=== PATIENT | female | born 1990 | race Caucasian/White ===

== ENCOUNTER 2017-02-21 10:09 | Emergency (ER) | payer OTHER ==
[~2017-02-21] VITALS: Ht 172.7 cm; Wt 70.0 kg
[~2017-02-21 10:09] MED LIST: ALLE12TA PO; AMOX500T PO; AMOX875T20 PO; FIORTAB4 PO; KETO10 PO; PRED20 PO; SULF-154 PO
[2017-02-21 10:10] VITALS: BP 109/65; PULSE 75; RESP 16; TEMP 98.5; O2SAT 98
[2017-02-21] MEDS ORDERED: KETOROLAC TROMETHAMINE 30 MG/ML (IVP) VIAL IV PUSH ONE (11:15)
[2017-02-21] MEDS ORDERED: diphenhydrAMINE HCL 50 MG/ML VIAL IVP ONE (11:15)
[2017-02-21] MEDS ORDERED: KETOROLAC TROMETHAMINE 30 MG/ML (IVP) VIAL IVP ONE (11:15)
[2017-02-21] MEDS ORDERED: PROCHLORPERAZINE INJ 10 MG/2 ML VIAL IVP ONE (11:15)
[2017-02-21] MEDS ORDERED: SODIUM CHLOR 0.9% 1000 ML INJ 1,000 ML IV ONE (11:15)
--- NOTE | 2017-02-21 11:21 | PD ---
HPI Chief Complaint: Headache Time Seen by Provider: 11:10 Travel History International Travel<30 days: No Contact w/Intl Traveler<30days: No Traveled to known affect area: No History of Present Illness HPI This is a 26-year-old female who has a history of migraines who presents to the emergency Department with onset of a headache at 4 AM, constant, moderate severity starting in her temples and radiating to the back of the neck associated with photophobia and flashes in her vision. She's vomited several times and was unable to keep anything down so she came to the emergency department. She says she has migraine headaches several times per year. Usually she Can control them with ibuprofen at home. She says this feels similar to her other headaches but the vomiting and inability to keep medications down is worse than normal. She denies any difficulty walking or talking. PFSH Past Medical History Diminished Hearing: No ?: Not LMP: 02/06/17 : 2 Para: 2 Past Surgical History Section: Yes (X 2) Social History Alcohol Use: Yes (OCCASIONAL) Tobacco Use: Yes (04/26 PPD) Substance Use: Yes (MARIJUANA) Allergies-Medications (Allergen,Severity, Reaction): Coded Allergies: cefaclor (Unverified Allergy, Severe, HIVES, 02/21/17) dog dander (Unverified Allergy, Severe, 02/21/17) erythromycin base (Unverified Allergy, Severe, HIVES, 02/21/17) Reported Meds & Prescriptions Reported Meds & Active Scripts Active No Active Prescriptions or Reported Medications Review of Systems Except as stated in HPI: all other systems reviewed are Neg Physical Exam Narrative GENERAL:Well appearing, no acute distress SKIN: Focused skin assessment warm and dry. HEAD: Atraumatic. Normocephalic. EYES: Pupils equal and round. No injection or drainage.(+) photophobia ENT: Moist mucous membranes NECK: Trachea midline. (-) meningismus CARDIOVASCULAR: Regular rate and rhythm. No murmur appreciated. RESPIRATORY: Clear to auscultation. Breath sounds equal bilaterally. GASTROINTESTINAL: Abdomen soft, non-tender, nondistended. MUSCULOSKELETAL: No obvious deformities. NEUROLOGICAL: Awake and alert. No obvious cranial nerve deficits. No dysarthria or aphasia. No upper or lower extremity drift. No upper extremity ataxia. Visual marcum intact. PSYCHIATRIC: Appropriate mood and affect; insight and judgment normal. Data Data Last Documented VS Vital Signs Date Time Temp Pulse Resp B/P (MAP) Pulse Ox O2 Delivery O2 Flow Rate FiO2 02/21/17 10:10 98.5 75 16 109/65 (80) 98 Room Air Orders Orders Ketorolac Inj (Toradol Inj) (02/21/17 11:15) Ketorolac Inj (Toradol Inj) (02/21/17 11:15) Prochlorperazine Inj (Compazine Inj) (02/21/17 11:15) Diphenhydramine Inj (Benadryl Inj) (02/21/17 11:15) Sodium Chlor 0.9% 1000 Ml Inj (Ns 1000 M (02/21/17 11:15) MDM Medical Decision Making Medical Screen Exam Complete: Yes Emergency Medical Condition: Yes Interpretation(s) Afebrile, no tachycardia, normotensive Differential Diagnosis Migraine headache, tension headache, subarachnoid hemorrhage, meningitis Narrative Course This is a 26-year-old female who has a history of migraine headaches who presents to the emergency department with a headache similar to her prior. She has a normal neurologic exam. I doubt subarachnoid hemorrhage as she has long history of migraines and this is similar. She was given IV fluids and pain control and she feels much better. Patient will be discharged home Diagnosis Primary Impression: Migraine Qualified Codes: G43.109 - Migraine with aura, not intractable, without status migrainosus Patient Instructions: General Instructions Additional Instructions: If you develop severe worsening headache, persistent vomiting, numbness, weakness, difficulty walking or difficulty talking return to the emergency department immediately. Sometimes in the emergency department we did not identify the cause of headaches. If you continued to have headaches it is very important that you followup with your primary care physician as you may need further testing with an MRI. Med/Other Pt SpecificInfo: Prescription(s) given Scripts Naproxen (Naproxen) 500 Mg Tab 500 MG PO BID Y for PAIN SCALE 4 TO 10, #20 TAB 0 Refills Prov: Cris Alaniz MD 02/21/17 Disposition: 01 DISCHARGE HOME Condition: Stable Cris Alaniz MD Feb 21, 2017 11:21
[2017-02-21] MEDS ORDERED: NAPR500T2 PO (12:20)
[2017-02-21 12:33] VITALS: BP 110/65
== END 2017-02-21 12:44 | disposition home or self-care (01) ==
LOC: NEPD 10:09
DX: G43.109 Migraine with aura, not intractable, without status migrainosus (principal); Z72.0 Tobacco use
CPT/HCPCS: 96374; 96375; 99284; J0780; J1200; J1885; J7030

== ENCOUNTER 2017-07-09 18:53 | Emergency (ER) | payer OTHER ==
[~2017-07-09 18:53] MED LIST changes: -ALLE12TA PO; -AMOX500T PO; -AMOX875T20 PO; -FIORTAB4 PO; -KETO10 PO; +NAPR500T2 PO; -PRED20 PO; -SULF-154 PO
[2017-07-09 19:07] VITALS: BP 114/65; PULSE 57; RESP 14; TEMP 98.7; O2SAT 98
[2017-07-09] MEDS ORDERED: NAPR500T2 PO (20:06)
--- NOTE | 2017-07-09 20:08 | RADRPT ---
EXAM DATE/TIME: 07/09/2017 19:17 [facility] COMPARISON: No previous studies available for comparison. INDICATIONS : Left lateral foot pain, injured jumping MEDICAL HISTORY : None. SURGICAL HISTORY : None. ENCOUNTER: Initial ACUITY: 2 days PAIN SCORE: 10/10 LOCATION: Left Foot FINDINGS: Three view examination of the left foot demonstrates no soft tissue swelling, dislocation, or fractur e. The tarsal bones appear intact. The interphalangeal and metatarsophalangeal joints are intact. The calcaneus is intact. Bony mineralization is normal. CONCLUSION: 1. No acute bony abnormality. Mendoza Payne MD on July 09, 2017 at 20:05 Board Certified Radiologist. This report was verified electronically.
--- NOTE | 2017-07-09 20:12 | PD ---
HPI Chief Complaint: Injury Time Seen by Provider: 19:48 Travel History International Travel<30 days: No Contact w/Intl Traveler<30days: No Traveled to known affect area: No History of Present Illness HPI 27-year-old female presents to the ED for evaluation 8/10 left foot pain. Onset yesterday after she "landed wrong" while jumping on trampoline at [employer]. She has been ambulatory since the accident. She denies numbness, tingling, weakness, limitations to range of motion or giving way of the extremity. She's never injured it before. She treated with ibuprofen which irritated her stomach, with no improvement in symptoms. PFSH Past Medical History Diminished Hearing: No ?: Not LMP: 06/25/2017 : 2 Para: 2 Past Surgical History Section: Yes (X 2) Social History Alcohol Use: Yes (OCCASIONAL) Tobacco Use: Yes (04/26 PPD) Substance Use: Yes (MARIJUANA) Allergies-Medications (Allergen,Severity, Reaction): Coded Allergies: cefaclor (Unverified Allergy, Severe, HIVES, 02/21/17) dog dander (Unverified Allergy, Severe, 02/21/17) erythromycin base (Unverified Allergy, Severe, HIVES, 02/21/17) Reported Meds & Prescriptions Reported Meds & Active Scripts Active Naproxen 500 Mg Tab 500 Mg PO BID Naproxen 500 Mg Tab 500 Mg PO BID PRN Review of Systems Except as stated in HPI: all other systems reviewed are Neg Physical Exam Narrative GENERAL: Well-nourished, well-developed white female in no acute distress. SKIN: Focused skin assessment warm/dry. HEAD: Normocephalic. EYES: No scleral icterus. No injection or drainage. NECK: Supple, trachea midline. No JVD or lymphadenopathy. CARDIOVASCULAR: Regular rate and rhythm without murmurs, gallops, or rubs. RESPIRATORY: Breath sounds equal bilaterally. No accessory muscle use. GASTROINTESTINAL: Abdomen soft, non-tender, nondistended. MUSCULOSKELETAL: No cyanosis, or edema. FOCUSED LEFT LOWER EXTREMITIES EXAM: 2+ DP pulse. Patient is able to wiggle her toes and flex and extend the ankle. There is ecchymosis and mild edema distal to the lateral malleolus. Squeeze test negative. No tenderness to palpation of the malleoli, base of the fifth or navicular. Neurovascular intact distally. BACK: Nontender without obvious deformity. No CVA tenderness. Data Data Last Documented VS Vital Signs Date Time Temp Pulse Resp B/P (MAP) Pulse Ox O2 Delivery O2 Flow Rate FiO2 07/09/17 19:07 98.7 57 14 114/65 (81) 98 Orders Orders Foot, Complete (Och0lev) (07/09/17 ) Shoe Post Op (07/09/17 ) Crutches (07/09/17 20:05) Ronal Bandage (07/09/17 20:05) Naproxen (Naprosyn) (07/09/17 20:15) MDM Medical Decision Making Medical Screen Exam Complete: Yes Emergency Medical Condition: Yes Differential Diagnosis Ankle sprain versus foot sprain versus fracture versus dislocation versus other Narrative Course 27-year-old female presents to the ED for evaluation 11/30 left foot pain. Onset yesterday after she "landed wrong" while jumping on trampoline at [employer]. She has been ambulatory since the accident. She denies numbness, tingling, weakness, limitations to range of motion or giving way of the extremity. Vitals reviewed. Physical exam reveals ecchymosis and edema distal to the lateral malleolus but is otherwise unremarkable. X-rays reveal no acute bony injury. This is sprain. Patient is evaluated with an Ronal wrap, postop shoe and crutches. She is prescribed Naprosyn 500 mg twice a day. She is instructed to return to normal, gentle weightbearing as tolerated, follow with the geospatial systems integrator. She is stable and discharged home. Diagnosis Primary Impression: Unspecified sprain of left foot, initial encounter Referrals: [facility] Additional Instructions: Rest, ice, compress, elevate the extremity. Apply ice no longer than 10-15 minutes per hour a few times a day. 500 mg naproxen twice a day to reduce pain and swelling. Return to normal, gentle activity as tolerated. Return to weightbearing as tolerated. No running, jumping activities for the next few weeks. Follow up with geospatial systems integrator. Return to the ED for any urgent or emergent medical condition. Med/Other Pt SpecificInfo: Prescription(s) given Scripts Naproxen (Naproxen) 500 Mg Tab 500 MG PO BID, #10 TAB 0 Refills Prov: Virgen,Shravanti R. MD 07/09/17 Disposition: 01 DISCHARGE HOME Condition: Stable Magda Hewitt Jul 09, 2017 20:12
[2017-07-09] MEDS ORDERED: NAPROXEN 500 MG TAB PO ONE (20:15)
== END 2017-07-09 20:30 | disposition home or self-care (01) ==
LOC: NED 18:53 → NEPK 20:30
DX: S93.602A Unspecified sprain of left foot, initial encounter (principal); F12.90 Cannabis use, unspecified, uncomplicated; F17.200 Nicotine dependence, unspecified, uncomplicated; X50.1XXA Overexertion from prolonged static or awkward postures, initial encounter; Y93.44 Activity, trampolining; Y92.838 Other recreation area as the place of occurrence of the external cause; Z88.1 Allergy status to other antibiotic agents
CPT/HCPCS: 73630; 99283; E0113; L3260

== ENCOUNTER 2017-08-10 20:48 | Emergency (ER) | payer OTHER ==
[~2017-08-10] VITALS: Ht 172.7 cm; Wt 78.0 kg
[2017-08-10 21:13] VITALS: BP 133/61; PULSE 93; RESP 20; TEMP 98.6; O2SAT 96
[2017-08-10] MEDS ORDERED: DEXAMETHASONE SOD PHOS 4 MG/ML VIAL IM ONE (21:45)
[2017-08-10] MEDS ORDERED: SODIUM CHLORIDE 0.9% FLUSH 10 ML FLUSH IVF PRN (21:45)
[2017-08-10] MEDS: RESP: ALBUTEROL 2.5 MG/IPRATROPIUM 0.5 MG NEB (SCH) INH (22:11)
--- NOTE | 2017-08-10 22:57 | PD ---
HPI Chief Complaint: Cold / Flu Symptoms Time Seen by Provider: 21:29 Travel History International Travel<30 days: No Contact w/Intl Traveler<30days: No Traveled to known affect area: No History of Present Illness HPI 27-year-old female complains of sore throat and cough. She also reports runny nose and sneezing. She reports working today and inhaling some noxious smoke causing dyspnea as well. She reports having to leave work because of it. Patient reports subjective fever. No similar prior events. No chest pain. No vomiting. PFSH Past Medical History Diminished Hearing: No : 2 Para: 2 Past Surgical History Section: Yes (X 2) Social History Alcohol Use: Yes (OCCASIONAL) Tobacco Use: Yes (04/26 PPD) Substance Use: Yes (MARIJUANA) Allergies-Medications (Allergen,Severity, Reaction): Coded Allergies: cefaclor (Unverified Allergy, Severe, HIVES, 08/10/17) dog dander (Unverified Allergy, Severe, 08/10/17) erythromycin base (Unverified Allergy, Severe, HIVES, 08/10/17) Reported Meds & Prescriptions Reported Meds & Active Scripts Active Naproxen 500 Mg Tab 500 Mg PO BID Naproxen 500 Mg Tab 500 Mg PO BID PRN Review of Systems Except as stated in HPI: all other systems reviewed are Neg General / Constitutional: Positive: Fever (Subjective report) Physical Exam Narrative GENERAL: 27-year-old female pleasant well-nourished well-developed mild distress Vital Signs Date Time Temp Pulse Resp B/P (MAP) Pulse Ox O2 Delivery O2 Flow Rate FiO2 08/10/17 21:13 98.6 93 20 133/61 (85) 96 SKIN: Warm and dry. HEAD: Atraumatic. Normocephalic. EYES: Pupils equal and round. No scleral icterus. No injection or drainage. ENT: No nasal bleeding or discharge. Mucous membranes pink and moist. Posterior oropharynx widely patent with minimal erythema. No asymmetry of the tonsils. NECK: Trachea midline. No JVD. CARDIOVASCULAR: Regular rate and rhythm. RESPIRATORY: Minimal wheezing is present bilaterally. GASTROINTESTINAL: Abdomen soft, non-tender, nondistended. Hepatic and splenic margins not palpable. MUSCULOSKELETAL: Extremities without clubbing, cyanosis, or edema. No obvious deformities. NEUROLOGICAL: Awake and alert. No obvious cranial nerve deficits. Motor grossly within normal limits. Five out of 5 muscle strength in the arms and legs. Normal speech. PSYCHIATRIC: Appropriate mood and affect; insight and judgment normal. Data Data Last Documented VS Vital Signs Date Time Temp Pulse Resp B/P (MAP) Pulse Ox O2 Delivery O2 Flow Rate FiO2 08/10/17 21:13 98.6 93 20 133/61 (85) 96 Orders Orders Chest, Single Ap (08/10/17 21:38) Sodium Chloride 0.9% Flush (Ns Flush) (08/10/17 21:45) Albuterol-Ipratropium Neb (Duoneb Neb) (08/10/17 21:45) Dexamethasone Inj (Decadron Inj) (08/10/17 21:45) MDM Medical Decision Making Medical Screen Exam Complete: Yes Emergency Medical Condition: Yes Medical Record Reviewed: Yes Differential Diagnosis Pneumonia, bronchitis, pharyngitis Narrative Course Chest x-ray shows no dense consolidation Patient had breathing treatments and Decadron shot. She reports persistent coughing however the breathing is improved. DC home with albuterol prescription. Diagnosis Primary Impression: Asthma attack Qualified Codes: J45.901 - Unspecified asthma with (acute) exacerbation Additional Impression: Bronchitis Referrals: [facility] 2 days Med/Other Pt SpecificInfo: Prescription(s) given Scripts Albuterol 8.5 GM Inh (Proair Hfa 8.5 GM Inh) 90 Mcg/Act Aer 2 PUFF INH Q6H Y for SHORTNESS OF BREATH, #1 INHALER 0 Refills 108 mcg/actuation Prov: Roman Ryan MD 08/10/17 Disposition: 01 DISCHARGE HOME Condition: Stable Roman Ryan MD Aug 10, 2017 22:57
[2017-08-10] MEDS ORDERED: ALBUAER3 INH (23:02)
--- NOTE | 2017-08-10 23:03 | RADRPT ---
EXAM DATE/TIME: 08/10/2017 22:02 [facility] COMPARISON: No previous studies available for comparison. INDICATIONS : Shortness of breath MEDICAL HISTORY : None. SURGICAL HISTORY : None. ENCOUNTER: Initial ACUITY: 1 day PAIN SCORE: 0/10 LOCATION: Bilateral chest FINDINGS: A single view of the chest demonstrates the lungs to be symmetrically aerated without evidence of mas s, infiltrate or effusion. The cardiomediastinal contours are unremarkable. Osseous structures are intact. CONCLUSION: No acute disease. Jovain Hightower MD on August 10, 2017 at 23:01 Board Certified Radiologist. This report was verified electronically.
== END 2017-08-10 23:21 | disposition home or self-care (01) ==
LOC: NEPD 20:48
DX: J45.901 Unspecified asthma with (acute) exacerbation (principal); F17.210 Nicotine dependence, cigarettes, uncomplicated; F12.90 Cannabis use, unspecified, uncomplicated
CPT/HCPCS: 71045; 94640; 94664; 96372; 99283; J1100

== ENCOUNTER 2017-08-20 20:32 | Emergency (ER) | payer OTHER ==
[~2017-08-20] VITALS: Ht 170.2 cm; Wt 80.0 kg
[~2017-08-20 20:32] MED LIST changes: +ALBUAER3 INH
[2017-08-20 20:36] VITALS: BP 144/86; PULSE 139; RESP 22; O2SAT 100
--- NOTE | 2017-08-20 20:56 | PD ---
HPI Chief Complaint: Neuro Symptoms/ Deficits Time Seen by Provider: 20:41 Travel History International Travel<30 days: No Contact w/Intl Traveler<30days: No Traveled to known affect area: No History of Present Illness HPI 27-year-old female patient with history of anxiety attacks, presents to the ER today brought in by EMS accompanied by her 7-year-old daughter, apparently she had twisted her neck and then started having spasms in her legs and arms, disorientation, disrupted speech. She is very hard to get history from because she is currently barely able to answer questions because of her disrupted speech and stuttering. Apparently, daughter states that there was a similar episode in the past and she had been seen at [facility]. Modifying Factors: None Associated Signs & Symptoms: Neck pain, disrupted speech, stuttering, arm and leg spasms Risk Factors: History of anxiety attack PFSH Past Medical History Medical History: Unable to Obtain Diminished Hearing: No ?: Unknown : 2 Para: 2 Past Surgical History Section: Yes (X 2) Social History Alcohol Use: Yes (OCCASIONAL) Tobacco Use: Yes (04/26 PPD) Substance Use: Yes (MARIJUANA) Allergies-Medications (Allergen,Severity, Reaction): Coded Allergies: cefaclor (Unverified Allergy, Severe, HIVES, 08/10/17) dog dander (Unverified Allergy, Severe, 08/10/17) erythromycin base (Unverified Allergy, Severe, HIVES, 08/10/17) Reported Meds & Prescriptions Reported Meds & Active Scripts Active Proair Hfa 8.5 GM Inh (Albuterol Sulfate) 90 Mcg/Act Aer 2 Puff INH Q6H PRN 108 mcg/actuation Naproxen 500 Mg Tab 500 Mg PO BID PRN Review of Systems ROS Limitations: Altered Mental Status, Speech Impaired Physical Exam Narrative GENERAL: Well-developed young female patient currently and moderate distress. Awake, alert, having intermittent spasms of both arms and both legs, stuttering speech, barely answering questions. In backboard and c-collar. SKIN: Focused skin assessment warm/dry. HEAD: Atraumatic. Normocephalic. EYES: Pupils equal and round. No scleral icterus. No injection or drainage. ENT: No nasal bleeding or discharge. Mucous membranes pink and moist. NECK: Trachea midline. No JVD. No midline C-spine step-offs or tenderness. CARDIOVASCULAR: Regular rate and rhythm. No murmur appreciated. RESPIRATORY: No accessory muscle use. Clear to auscultation. Breath sounds equal bilaterally. GASTROINTESTINAL: Abdomen soft, non-tender, nondistended. Hepatic and splenic margins not palpable. MUSCULOSKELETAL: No obvious deformities. No clubbing. No cyanosis. No edema. BACK: No CVA tenderness. No rash. No point tenderness on palpation of the spine. NEUROLOGICAL: Awake and alert. Face is symmetrical. She has spasm-like arm and leg movements, but is able to raise arms and legs up somewhat against gravity. PSYCHIATRIC: Appropriate mood and affect; insight and judgment poor. Data Data Last Documented VS Vital Signs Date Time Temp Pulse Resp B/P (MAP) Pulse Ox O2 Delivery O2 Flow Rate FiO2 08/20/17 20:36 139 22 144/86 (105) 100 Orders Orders Complete Blood Count With Diff (08/20/17 20:42) Comprehensive Metabolic Panel (08/20/17 20:42) Creatine Kinase (Cpk) (08/20/17 20:42) Magnesium (Mg) (08/20/17 20:42) Ct Brain W/O Iv Contrast(Rout) (08/20/17 20:42) Ed Urine Pregnancytest Poc (08/20/17 20:42) Drug Screen, Random Urine (08/20/17 20:42) Alcohol (Ethanol) (08/20/17 20:42) Ct Cerv Spine W/O Contrast (08/20/17 20:42) Potassium Chlor 20 Meq Premix (Kcl 20 Me (08/20/17 22:30) Remove Backboard (08/20/17 22:16) Remove Cervical Collar (08/20/17 22:16) Potassium Chloride Eff (K-Lyte Cl Eff) (08/21/17 00:30) Ed Discharge Order (08/21/17 00:17) Labs Laboratory Tests Test 08/20/17 21:00 08/20/17 22:20 White Blood Count 10.4 TH/MM3 Red Blood Count 4.38 MIL/MM3 Hemoglobin 13.8 GM/DL Hematocrit 39.0 % Mean Corpuscular Volume 89.1 FL Mean Corpuscular Hemoglobin 31.4 PG Mean Corpuscular Hemoglobin Concent 35.2 % Red Cell Distribution Width 12.7 % Platelet Count 302 TH/MM3 Mean Platelet Volume 8.7 FL Neutrophils (%) (Auto) 62.4 % Lymphocytes (%) (Auto) 28.8 % Monocytes (%) (Auto) 6.8 % Eosinophils (%) (Auto) 1.5 % Basophils (%) (Auto) 0.5 % Neutrophils # (Auto) 6.5 TH/MM3 Lymphocytes # (Auto) 3.0 TH/MM3 Monocytes # (Auto) 0.7 TH/MM3 Eosinophils # (Auto) 0.2 TH/MM3 Basophils # (Auto) 0.0 TH/MM3 CBC Comment DIFF FINAL Differential Comment Blood Urea Nitrogen 9 MG/DL Creatinine 0.90 MG/DL Random Glucose 99 MG/DL Total Protein 7.0 GM/DL Albumin 4.0 GM/DL Calcium Level 8.6 MG/DL Magnesium Level 2.0 MG/DL Alkaline Phosphatase 75 U/L Aspartate Amino Transf (AST/SGOT) 16 U/L Alanine Aminotransferase (ALT/SGPT) 18 U/L Total Bilirubin 0.2 MG/DL Sodium Level 144 MEQ/L Potassium Level 3.2 MEQ/L Chloride Level 109 MEQ/L Carbon Dioxide Level 26.4 MEQ/L Anion Gap 9 MEQ/L Estimat Glomerular Filtration Rate 76 ML/MIN Total Creatine Kinase 86 U/L Ethyl Alcohol Level LESS THAN 3 MG/DL Urine Opiates Screen NEG Urine Barbiturates Screen NEG Urine Amphetamines Screen NEG Urine Benzodiazepines Screen NEG Urine Cocaine Screen NEG Urine Cannabinoids Screen POS MDM Medical Decision Making Medical Screen Exam Complete: Yes Emergency Medical Condition: Yes Medical Record Reviewed: Yes Interpretation(s) Laboratory Tests Test 08/20/17 21:00 08/20/17 22:20 Potassium Level 3.2 MEQ/L (3.5-5.1) Chloride Level 109 MEQ/L (98-107) Estimat Glomerular Filtration Rate 76 ML/MIN (>89) Urine Cannabinoids Screen POS (NEG) Last [address] 08/20/172041 Signed Impressions: Service Date/Time: Sunday, August 20, 2017 21:18 - CONCLUSION: Normal examination. Mendoza Payne MD Cervical Spine CT 08/20/172041 Signed Impressions: Service Date/Time: Sunday, August 20, 2017 21:18 - CONCLUSION: Normal examination for a patient of this age. Mendoza Payne MD Differential Diagnosis Anxiety attack versus C-spine injuries versus acute intracranial processes versus electrolyte abnormalities Narrative Course CT of the brain and C-spine was unremarkable. Lab work shows mild hypokalemia and she was given IV potassium but she states it burned too much, and p.o. potassium was given in the ER. She also has marijuana in her urine toxicology screen. Otherwise, vital signs are stable. She was able to ambulate to the bathroom. She did not have focal neurological deficits. However, she continues to have jerking movements intermittently. On further discussions with patient's mom, patient has been following up with primary care doctor and neurologist, and they have done further studies on her as an outpatient, and apparently patient has been evaluated last time at [facility] for something similar and had been told that it was an anxiety attack. At this point, on reevaluation at 12 AM, she is talking more and able to give me further history and symptoms seems to be subsiding. I have talked her regarding findings and I have talked to her regarding admission for further evaluation versus close outpatient follow-up with her primary care doctor neurologist for further evaluation of this issue that has happened in the past and she declines to stay at this point stating that she wants to follow-up with her outpatient doctors. She should return for any worsening in symptoms. The plan has been discussed with her and she states understanding. Diagnosis Primary Impression: Neurological symptoms Additional Impression: Hypokalemia Additional Instructions: You should return for any worsening in symptoms. You need to talk to her primary care doctor neurologist regarding this issue. You will need further evaluation for this issue. Disposition: 01 DISCHARGE HOME Condition: Stable Jeanine Johnson MD Aug 20, 2017 20:56
[2017-08-20 21:43] LABS: AUTOMATED NEUTROPHIL # 6.5 TH/MM3 (1.8-7.7); BASOPHIL % 0.5 % (0.0-2.0); EOSINOPHIL # 0.2 TH/MM3 (0-0.4); EOSINOPHIL % 1.5 % (0.0-4.0); HEMOGLOBIN 13.8 GM/DL (11.6-15.3); LYMPH % 28.8 % (9.0-44.0); MEAN CELL VOLUME 89.1 FL (80.0-100.0); MEAN CORPUSCULAR HEMOGLOBIN 31.4 PG (27.0-34.0); MEAN CORPUSCULAR HGB CONC 35.2 % (32.0-36.0); MEAN PLATELET VOLUME 8.7 FL (7.0-11.0); MONO % 6.8 % (0.0-8.0); MONOCYTE # 0.7 TH/MM3 (0-0.9); NEUT % 62.4 % (16.0-70.0); PLATELET COUNT 302 TH/MM3 (150-450); RED BLOOD COUNT 4.38 MIL/MM3 (4.00-5.30); RED CELL DISTRIBUTION WIDTH 12.7 % (11.6-17.2); WHITE BLOOD COUNT 10.4 TH/MM3 (4.0-11.0)
--- NOTE | 2017-08-20 21:46 | RADRPT ---
EXAM DATE/TIME: 08/20/2017 21:18 [facility] COMPARISON: No previous studies available for comparison. INDICATIONS : Altered mental status after popping neck. RADIATION DOSE: 32.33 CTDIvol (mGy) MEDICAL HISTORY : None SURGICAL HISTORY : None. ENCOUNTER: Initial ACUITY: 1 day PAIN SCALE: Non-responsive LOCATION: cranial TECHNIQUE: Multiple contiguous axial images were obtained of the head. Using automated exposure control and adj ustment of the mA and/or kV according to patient size, radiation dose was kept as low as reasonably a chievable to obtain optimal diagnostic quality images. DICOM format image data is available electro nically for review and comparison. FINDINGS: CEREBRUM: The ventricles are normal for age. No evidence of midline shift, mass lesion, hemorrhage or acute in farction. No extra-axial fluid collections are seen. POSTERIOR FOSSA: The cerebellum and brainstem are intact. The 4th ventricle is midline. The cerebellopontine angle i s unremarkable. EXTRACRANIAL: The visualized portion of the orbits is intact. SKULL: The calvaria is intact. No evidence of skull fracture. CONCLUSION: Normal examination. Mendoza Payne MD on August 20, 2017 at 21:42 Board Certified Radiologist. This report was verified electronically.
--- NOTE | 2017-08-20 21:47 | RADRPT ---
EXAM DATE/TIME: 08/20/2017 21:18 [place] COMPARISON: No previous studies available for comparison. INDICATIONS : Altered mental status after popping neck. RADIATION DOSE: 16.48 CTDIvol (mGy) MEDICAL HISTORY : None SURGICAL HISTORY : None. ENCOUNTER: Initial ACUITY: 1 day PAIN SCALE: Non-responsive LOCATION: Bilateral neck TECHNIQUE: Volumetric scanning of the cervical spine was performed. Multiplanar reconstructions in the sagittal, coronal and oblique axial planes were performed. Using automated exposure control and adjustment o f the mA and/or kV according to patient size, radiation dose was kept as low as reasonably achievable to obtain optimal diagnostic quality images. DICOM format image data is available electronically f or review and comparison. FINDINGS: VERTEBRAE: Normal vertebral body height. ALIGNMENT: No evidence of subluxation. C2-C3: The bony spinal canal is normal in size. No evidence of disc bulge or herniation. The neural forami na are bilaterally patent. C3-C4: The bony spinal canal is normal in size. No evidence of disc bulge or herniation. The neural forami na are bilaterally patent. C4-C5: The bony spinal canal is normal in size. No evidence of disc bulge or herniation. The neural forami na are bilaterally patent. C5-C6: The bony spinal canal is normal in size. No evidence of disc bulge or herniation. The neural forami na are bilaterally patent. C6-C7: The bony spinal canal is normal in size. No evidence of disc bulge or herniation. The neural forami na are bilaterally patent. C7-T1: The bony spinal canal is normal in size. No evidence of disc bulge or herniation. The neural forami na are bilaterally patent. CONCLUSION: Normal examination for a patient of this age. Mendoza Payne MD on August 20, 2017 at 21:44 Board Certified Radiologist. This report was verified electronically.
[2017-08-20 22:01] LABS: AST (GOT) 16 U/L (15-37); BICARBONATE 26.4 MEQ/L (21.0-32.0); BLOOD UREA NITROGEN 9 MG/DL (7-18); CALCIUM 8.6 MG/DL (8.5-10.1); CHLORIDE 109 MEQ/L (98-107); GLOMERULAR FILTRATION RATE 76 ML/MIN (>89); GLUCOSE,RANDOM 99 MG/DL (74-106); SODIUM (NA) 144 MEQ/L (136-145)
[2017-08-20 22:02] LABS: ALT (GPT) 18 U/L (10-53)
[2017-08-20 22:04] LABS: ALKALINE PHOSPHATASE 75 U/L (45-117); TOTAL BILIRUBIN ADULT 0.2 MG/DL (0.2-1.0)
[2017-08-20] MEDS ORDERED: POTASSIUM CHLOR 20 MEQ PREMIX 100 ML IV ONE (22:30)
[2017-08-21] MEDS ORDERED: POTASSIUM CHLORIDE 25 MEQ EFFERVESCENT TAB PO ONE (00:30)
== END 2017-08-21 01:04 | disposition home or self-care (01) ==
LOC: NEPC 20:32
DX: R29.818 Other symptoms and signs involving the nervous system (principal); E87.6 Hypokalemia; F12.90 Cannabis use, unspecified, uncomplicated; F17.200 Nicotine dependence, unspecified, uncomplicated; M54.2 Cervicalgia
CPT/HCPCS: 70450; 72125; 80053; 80307; 82550; 83735; 84703; 85025; 96365; 96366; 99284; J3480